=== PATIENT | female | born 1970 | race African-American/Black ===

== ENCOUNTER 2016-09-27 19:34 | Emergency (ER) | payer OTHER ==
[~2016-09-27] VITALS: Ht 172.7 cm; Wt 105.0 kg
[~2016-09-27 19:34] MED LIST: ATEN-100 PO; B/P MED; IBUP800T23 PO; NAPR500 PO; ONDA1TAB16 PO; TRAM50 PO; ZOFR4TAB3 SL
[2016-09-27 19:43] VITALS: BP 148/88; PULSE 77; RESP 18; TEMP 98.6; O2SAT 99
[2016-09-27 19:56] VITALS: BP 148/88; PULSE 77; RESP 18; TEMP 98.6; O2SAT 99
[2016-09-27] MEDS ORDERED: LORazepam 2 MG TAB PO ONE (20:45)
[2016-09-27] MEDS ORDERED: ACETAMINOPHEN/HYDROcodone 325 MG/10 MG TAB PO ONE (20:45)
[2016-09-27 21:00] VITALS: BP 160/78; PULSE 73; RESP 16; O2SAT 97
[2016-09-27] MEDS ORDERED: ATEN25TA PO (21:37)
[2016-09-27] MEDS ORDERED: ALBU2TAB4 PO (21:37)
--- NOTE | 2016-09-27 21:56 | PD ---
HPI . Cramping of both legs Chief Complaint: Musculoskeletal Complaint Time Seen by Provider: 20:41 Travel History International Travel<30 days: No Contact w/Intl Traveler<30days: No Traveled to known affect area: No History of Present Illness HPI Patient presents with a 2 day history of bilateral lower extremity cramping. She denies known injury. Symptoms are exacerbated by driving a car. Symptoms were unrelieved by Aleve. The nurse has obtained a history of previous hypokalemia. Patient reports that she has been off of potassium for quite some time now. The nurse also obtained a history of a recent in the family. There is a question of alcohol use. [id number]: Both legs QUALITY: Cramping DURATION: 2 days TIMING: Continuous MODIFYING FACTORS: Exacerbated by driving. Unrelieved by Aleve ASSOCIATED SYMPTOMS: She denies chest pain or shortness of breath PFSH Past Medical History Cardiovascular Problems: Yes (HTN) Diminished Hearing: No Hypertension: Yes Neurologic: Yes (GUILLEN PALSY) Immunizations Current: Yes Migraines: Yes Tetanus Vaccination: < 5 Years Influenza Vaccination: No ?: Not LMP: 09/10/2016 : 2 Para: 2 Tubal Ligation: Yes (Reversal 2014) Past Surgical History Section: Yes Gynecologic Surgery: Yes ( 1991) Social History Alcohol Use: No Tobacco Use: Yes Substance Use: No Allergies-Medications (Allergen,Severity, Reaction): Coded Allergies: No Known Allergies (Verified , 09/27/16) Reported Meds & Prescriptions Reported Meds & Active Scripts Active Reported Albuterol (Albuterol Sulfate) 2 Mg Tab 2 Mg PO TID Atenolol 25 Mg Tab 50 Mg PO DAILY Review of Systems Except as stated in HPI: all other systems reviewed are Neg General / Constitutional: No: Fever, Chills Cardiovascular: No: Chest Pain or Discomfort Respiratory: No: Shortness of Breath Gastrointestinal: No: Nausea, Vomiting Musculoskeletal: Positive: Myalgias Physical Exam Narrative GENERAL: Awake and alert and in no acute distress. She ambulates to the room without difficulty. SKIN: Warm and dry. HEAD: Atraumatic. Normocephalic. EYES: Pupils equal and round. ENT: No nasal bleeding or discharge. Mucous membranes pink and moist. NECK: Trachea midline. CARDIOVASCULAR: Regular rate and rhythm. RESPIRATORY: No accessory muscle use. GASTROINTESTINAL: Abdomen soft, non-tender, nondistended. MUSCULOSKELETAL: No obvious deformities. No edema. Her calves and thighs are nontender to palpation. There is no coloration. The skin is normal temperature. Full and equal distal pulses. NEUROLOGICAL: Awake and alert. No obvious cranial nerve deficits. Motor grossly within normal limits. Normal speech. PSYCHIATRIC: Appropriate mood and affect; insight and judgment normal. Data Data Last Documented VS Vital Signs Date Time Temp Pulse Resp B/P Pulse Ox O2 Delivery O2 Flow Rate FiO2 09/27/16 21:00 73 16 160/78 97 Room Air 09/27/16 19:56 98.6 Orders Us Leg Venous Doppler Bilat (09/27/16 20:41) Basic Metabolic Panel (Bmp) (09/27/16 20:41) Magnesium (Mg) (09/27/16 20:41) Acetamin-Hydrocod 325-10 Mg ([place] 10-32 (09/27/16 20:45) Lorazepam (Ativan) (09/27/16 20:45) Labs Laboratory Tests Test 09/27/16 22:00 Sodium Level 140 MEQ/L Potassium Level 3.8 MEQ/L Chloride Level 105 MEQ/L Carbon Dioxide Level 25.8 MEQ/L Anion Gap 9 MEQ/L Blood Urea Nitrogen 14 MG/DL Creatinine 0.75 MG/DL Estimat Glomerular Filtration 102 ML/MIN Rate Random Glucose 104 MG/DL Calcium Level 8.6 MG/DL Magnesium Level 1.9 MG/DL MDM Medical Decision Making Medical Screen Exam Complete: Yes Emergency Medical Condition: Yes Differential Diagnosis Differential diagnosis of leg pain includes but is not limited to lumbar radiculopathy, arthritis, myalgias, DVT. Narrative Course Patient presents complaining with bilateral lower extremity cramping. We will check her electrolytes and an ultrasound rule out a DVT. Last Impressions Lower Extremity Ultrasound 09/27/162040 Signed Impressions: Service Date/Time: Tuesday, September 27, 2016 21:26 - CONCLUSION: 1. No DVT in either leg. David Caraballo MD BMP Diagram 09/27/16 22:00 Magnesium is 1.9. Diagnosis Primary Impression: Leg cramps Qualified Code: R25.2 - Cramp of both lower extremities Patient Instructions: General Instructions, Leg Cramps (ED) Med/Other Pt SpecificInfo: Prescription(s) given Scripts Cyclobenzaprine (Flexeril)10 Mg Tab10 Mg PO TID #30 TAB Ref 0 Prov:Kenna Lopez MD 09/27/16 Tramadol (Ultram)50 Mg Tab50 Mg PO Q4H PRN (PAIN) #12 TAB Ref 0 Prov:Kenna Lopez MD 09/27/16 Disposition: 01 DISCHARGE HOME Condition: Stable Kenna Lopez MD Sep 27, 2016 21:56
--- NOTE | 2016-09-27 21:59 | RADHPO ---
EXAM DATE/TIME: 09/27/2016 21:26 [facility] COMPARISON: No previous studies available for comparison. INDICATIONS : Bilateral leg cramps. MEDICAL HISTORY : Hypertension. . Migraines. [place] palsy. SURGICAL HISTORY : Tubal ligation. section. ENCOUNTER: Initial ACUITY: 3 days PAIN SCORE: 5/10 LOCATION: Bilateral legs. TECHNIQUE: Venous ultrasound of the left and right leg was performed from the inguinal ligament to the proximal calf. Real-time, color Doppler and spectral tracing, compression and augmentation techniques were us ed. FINDINGS: RIGHT LEG: There is normal compressibility of the deep venous system from the inguinal region to the proximal ca lf. No echogenic clot is seen in the lumen of the common femoral, femoral, popliteal, and posterior tibial veins. There is a normal response of the venous system to proximal and distal augmentation an d respiration. LEFT LEG: There is normal compressibility of the deep venous system from the inguinal region to the proximal ca lf. No echogenic clot is seen in the lumen of the common femoral, femoral, popliteal, and posterior tibial veins. There is a normal response of the venous system to proximal and distal augmentation an d respiration. CONCLUSION: 1. No DVT in either leg. David Caraballo MD on September 27, 2016 at 21:56 Board Certified Radiologist. This report was verified electronically.
[2016-09-27 22:00] VITALS: BP 171/86; PULSE 72; RESP 18; O2SAT 99
[2016-09-27 22:20] LABS: POTASSIUM 3.8 MEQ/L (3.5-5.1)
[2016-09-27 22:22] LABS: BICARBONATE 25.8 MEQ/L (21.0-32.0); MAGNESIUM 1.9 MG/DL (1.5-2.5)
[2016-09-27] MEDS ORDERED: ULTR50TA5 PO (22:45)
[2016-09-27] MEDS ORDERED: CYCL1TAB29 PO (22:45)
[2016-09-27] MEDS ORDERED: ONDANSETRON HCL 4 MG/2 ML VIAL IV PUSH ONE (23:30)
[2016-09-28 00:01] VITALS: BP 195/99; PULSE 77; RESP 18; O2SAT 99
[2016-09-28 00:08] VITALS: BP 187/85
== END 2016-09-28 00:26 | disposition home or self-care (01) ==
LOC: PHED 19:34
DX: R25.2 Cramp and spasm (principal); I10 Essential (primary) hypertension; Z72.0 Tobacco use; Z86.79 Personal history of other diseases of the circulatory system; Z86.69 Personal history of other diseases of the nervous system and sense organs
CPT/HCPCS: 80048; 83735; 93970; 96374; 99284; J2405

== ENCOUNTER 2016-10-05 06:29 | Emergency (ER) | payer OTHER ==
[~2016-10-05] VITALS: Ht 172.7 cm; Wt 100.0 kg
[~2016-10-05 06:29] MED LIST changes: +ALBU2TAB4 PO; -ATEN-100 PO; +ATEN25TA PO; -B/P MED; +CYCL1TAB29 PO; -IBUP800T23 PO; -NAPR500 PO; -ONDA1TAB16 PO; -TRAM50 PO; +ULTR50TA5 PO; -ZOFR4TAB3 SL
[2016-10-05 06:30] VITALS: BP 168/88; PULSE 122; RESP 18; TEMP 98.3; O2SAT 98
[2016-10-05] MEDS ORDERED: MOBI7.5T PO (07:14)
--- NOTE | 2016-10-05 09:43 | PD ---
HPI Chief Complaint: Pain: Acute or Chronic Time Seen by Provider: 07:36 Travel History International Travel<30 days: No Contact w/Intl Traveler<30days: No Traveled to known affect area: No History of Present Illness HPI The patient was seen and examined in the presence of the nurse. This patient complains of right knee pain. Duration one week. No injury. Symptoms severity is moderate. She's been to her family physician as well as [facility] emergency room twice for this. She had a negative ultrasound for DVT but did reveal a Lucia cyst. She feels the pain and fullness behind the knee. PFSH Past Medical History Cardiovascular Problems: Yes (HTN) Diminished Hearing: No Hypertension: Yes Neurologic: Yes (GUILLEN PALSY) Immunizations Current: Yes Migraines: Yes Tetanus Vaccination: Unknown Influenza Vaccination: No ?: Not LMP: 09/15/2016 : 2 Para: 2 Tubal Ligation: Yes (Reversal 2014) Past Surgical History Section: Yes (1992) Gynecologic Surgery: Yes ( 1992) Social History Alcohol Use: No (OCC ) Tobacco Use: Yes (/2 PPD ) Substance Use: No (HX : MARIJUANA USE ) Allergies-Medications (Allergen,Severity, Reaction): Coded Allergies: No Known Allergies (Verified , 10/05/16) Reported Meds & Prescriptions Reported Meds & Active Scripts Active Flexeril (Cyclobenzaprine HCl) 10 Mg Tab 10 Mg PO TID Ultram (Tramadol HCl) 50 Mg Tab 50 Mg PO Q4H PRN Reported Mobic (Meloxicam) 7.5 Mg Tab 7.5 Mg PO DAILY Albuterol (Albuterol Sulfate) 2 Mg Tab 2 Mg PO TID Atenolol 25 Mg Tab 50 Mg PO DAILY Review of Systems General / Constitutional: No: Fever HENT: No: Headaches Cardiovascular: No: Irregular Rhythm Respiratory: No: Cough Physical Exam Narrative SKIN: Inspection shows no rash or ulcers. Palpation shows no induration or nodules. Psych: Normal mood and affect. Normal insight and judgment. Right leg: No effusion or erythema or warmth at the knee. No bony tenderness. Joint is stable. Data Data Last Documented VS Vital Signs Date Time Temp Pulse Resp B/P Pulse Ox O2 Delivery O2 Flow Rate FiO2 10/05/16 06:30 98.3 122 18 168/88 98 Room Air Orders Crutches (10/05/16 07:59) MDM Medical Decision Making Medical Screen Exam Complete: Yes Emergency Medical Condition: Yes Medical Record Reviewed: Yes Differential Diagnosis Lucia cyst, DVT, soft tissue injury Narrative Course I have reviewed the patient's electronic medical record. I reviewed her ultrasound results which ruled out DVT but she'll Lucia cyst behind the right knee. I gave her crutches Recommend nonweightbearing for a few days. She should ice and elevate and follow-up with orthopedist She has anti-inflammatories as well as Flexeril and tramadol at home for pain relief Diagnosis Primary Impression: Lucia's cyst of knee Qualified Code: M71.21 - Lucia's cyst of knee, right Additional Instructions: Follow-up with orthopedist Use crutches Med/Other Pt SpecificInfo: Other Disposition: 01 DISCHARGE HOME Condition: Stable Gene Reddy MD Oct 05, 2016 09:43
[2016-10-05 09:55] VITALS: BP 130/60
== END 2016-10-05 10:00 | disposition home or self-care (01) ==
LOC: NEPC 06:29
DX: M71.21 Synovial cyst of popliteal space [Baker], right knee (principal); I10 Essential (primary) hypertension; F17.210 Nicotine dependence, cigarettes, uncomplicated
CPT/HCPCS: 99283; E0113

== ENCOUNTER 2017-04-24 15:12 | Emergency (ER) | payer OTHER ==
[~2017-04-24] VITALS: Ht 172.7 cm; Wt 102.8 kg
[~2017-04-24 15:12] MED LIST changes: +MOBI7.5T PO
[2017-04-24 15:18] VITALS: BP 207/95; PULSE 82; RESP 18; TEMP 99.1; O2SAT 100
[2017-04-24] MEDS ORDERED: HYDR50TA94 PO (16:23)
[2017-04-24] MEDS ORDERED: NAPHSOL LEFT EYE (16:23)
--- NOTE | 2017-04-24 16:24 | PD ---
HPI . Left eye swelling Chief Complaint: Eye Problems/Injury Time Seen by Provider: 16:16 Travel History International Travel<30 days: No Contact w/Intl Traveler<30days: No Traveled to known affect area: No History of Present Illness HPI This patient presents with an onset of a swollen left eye. She awakened this morning. She states that she has treated it with a warm compress with marked improvement. Still have some swelling and some redness. She also states that the eyes itching and watering. She has not taken any medication for it. She does not know the etiology of the apparent allergy. She states that her symptoms this morning were severe. Mild now. PFSH Past Medical History Cardiovascular Problems: Yes (htn) Chemotherapy: Yes Diminished Hearing: No Hypertension: Yes Neurologic: Yes (GUILLEN PALSY) Respiratory: Yes Immunizations Current: Yes Migraines: Yes Tetanus Vaccination: < 5 Years Influenza Vaccination: No ?: Not LMP: 04-16-17 : 2 Para: 2 Tubal Ligation: Yes (Reversal 2014) Past Surgical History Section: Yes (1992) Gynecologic Surgery: Yes ( 1992) Other Surgery: Yes (reversal of tubal 2015) Social History Alcohol Use: No (OCC ) Tobacco Use: Yes (/2 PPD ) Substance Use: No (HX : MARIJUANA USE ) Allergies-Medications (Allergen,Severity, Reaction): Coded Allergies: No Known Allergies (Verified , 04/24/17) Reported Meds & Prescriptions Reported Meds & Active Scripts Active Reported Albuterol (Albuterol Sulfate) 2 Mg Tab 2 Mg PO TID Review of Systems Except as stated in HPI: all other systems reviewed are Neg Eyes: Positive: Drainage, Redness, Tearing, Other (itching and swelling), No: Blurred Vision Physical Exam Narrative GENERAL: Pleasant woman who is in no acute distress. SKIN: Warm and dry with no rash or lesions. HEAD: Normocephalic/atraumatic. EYES: Pupils are equal. Extraocular movements are intact. The conjunctiva of the left eye is edematous and injected. NECK: Supple. Full range of motion. CARDIOVASCULAR: Regular rate and rhythm. RESPIRATORY: Nonlabored respirations. MUSCULOSKELETAL: Atraumatic. NEUROLOGICAL: Nonfocal. PSYCHIATRIC: Appropriate mood and affect. Data Data Last Documented VS Vital Signs Date Time Temp Pulse Resp B/P (MAP) Pulse Ox O2 Delivery O2 Flow Rate FiO2 04/24/17 15:18 99.1 82 18 207/95 (132) 100 MDM Medical Decision Making Medical Screen Exam Complete: Yes Emergency Medical Condition: Yes Differential Diagnosis Differential diagnosis of eye pain includes but is not limited to conjunctivitis , chemical irritation, corneal abrasion, acute angle-closure glaucoma. Narrative Course This patient presents with swelling, itching and watering of her left eye. Her exam is compatible with allergic conjunctivitis. She will be discharged to home on Atarax and Naphcon A. Diagnosis Primary Impression: Allergic conjunctivitis Qualified Codes: H10.12 - Acute atopic conjunctivitis, left eye Patient Instructions: Conjunctivitis (DC), General Instructions Med/Other Pt SpecificInfo: Prescription(s) given Scripts Naphazoline-Pheniramine Opth Drops (Naphcon-A Opth Drops) 0.025-0.3 % Soln 1 DROP LEFT EYE QID for Decrease eye itching/redness, #1 BOTTLE 0 Refills Prov: Kenna Lopez MD 04/24/17 Hydroxyzine HCl (Hydroxyzine HCl) 50 Mg Tab 50 MG PO QID Y for itching, #30 TAB 0 Refills Prov: Kenna Lopez MD 04/24/17 Disposition: 01 DISCHARGE HOME Condition: Stable Kenna Lopez MD Apr 24, 2017 16:23
== END 2017-04-24 16:34 | disposition home or self-care (01) ==
LOC: PHEFT 15:12
DX: H10.12 Acute atopic conjunctivitis, left eye (principal); F17.210 Nicotine dependence, cigarettes, uncomplicated
CPT/HCPCS: 99283

== ENCOUNTER 2017-12-31 03:00 | Emergency (ER) | payer OTHER ==
[~2017-12-31] VITALS: Ht 172.7 cm; Wt 100.0 kg
[~2017-12-31 03:00] MED LIST changes: -ATEN25TA PO; -CYCL1TAB29 PO; +HYDR50TA94 PO; -MOBI7.5T PO; +NAPHSOL LEFT EYE; -ULTR50TA5 PO
[2017-12-31 03:02] VITALS: BP 140/79; PULSE 107; RESP 18; TEMP 97.7; O2SAT 100
[2017-12-31] MEDS ORDERED: AMLO10TA2 PO (03:05)
--- NOTE | 2017-12-31 03:23 | PD ---
HPI Chief Complaint: Back/ Neck Pain or Injury Time Seen by Provider: 03:21 Travel History International Travel<30 days: No Contact w/Intl Traveler<30days: No Traveled to known affect area: No History of Present Illness HPI Patient comes in complaining of lower back pain, worse with movement, nonradiating, rates it 8 out of 10. It all started while she was playing with her granddaughter and she ended up feeling like she pulled her back while playing. Patient denies any urinary or fecal incontinence. Patient denies any numbness to her groin area or down to her legs. Patient denies any alleviating or aggravating factors. Patient denies any associated factors such as fever, rash, nausea, vomiting, diarrhea, hematuria/dysuria/frequency/urgency. No nondrug allergies Past medical history significant for Guillen's palsy, migraine, hypertension, C- section 1982, reversal of tubal ligation back in 2014, , occasional alcohol use, marijuana use half a pack per day of tobacco use PFSH Past Medical History Cardiovascular Problems: Yes (htn) Chemotherapy: Yes Diminished Hearing: No Hypertension: Yes Neurologic: Yes (GUILLEN PALSY) Respiratory: Yes Immunizations Current: Yes Migraines: Yes Tetanus Vaccination: Unknown Influenza Vaccination: No ?: Not : 2 Para: 2 Tubal Ligation: Yes (Reversal 2014) Past Surgical History Section: Yes (1992) Gynecologic Surgery: Yes ( 1992) Other Surgery: Yes (reversal of tubal 2015) Social History Alcohol Use: No (OCC ) Tobacco Use: Yes (1/2 PPD ) Substance Use: No (HX : MARIJUANA USE ) Allergies-Medications (Allergen,Severity, Reaction): Coded Allergies: No Known Allergies (Verified Adverse Reaction, Unknown, 12/31/17) Reported Meds & Prescriptions Reported Meds & Active Scripts Active Reported Amlodipine (Amlodipine Besylate) 10 Mg Tab 10 Mg PO DAILY Review of Systems General / Constitutional: No: Fever Eyes: No: Visual changes HENT: No: Headaches Cardiovascular: No: Chest Pain or Discomfort Respiratory: No: Shortness of Breath Gastrointestinal: No: Abdominal Pain Genitourinary: No: Dysuria Musculoskeletal: Positive: Pain Skin: No Rash Neurologic: No: Weakness Psychiatric: No: Depression Endocrine: No: Polydipsia Hematologic/Lymphatic: No: Easy Bruising Physical Exam Narrative GENERAL: SKIN: Warm and dry. HEAD: Atraumatic. Normocephalic. EYES: Pupils equal and round. No scleral icterus. No injection or drainage. ENT: No nasal bleeding or discharge. Mucous membranes pink and moist. NECK: Trachea midline. No JVD. CARDIOVASCULAR: Regular rate and rhythm. RESPIRATORY: No accessory muscle use. Clear to auscultation. Breath sounds equal bilaterally. GASTROINTESTINAL: Abdomen soft, non-tender, nondistended. MUSCULOSKELETAL: Extremities without clubbing, cyanosis, or edema. No obvious deformities. Patient has notable spasm of her lower ileal lumbarIs muscle NEUROLOGICAL: Awake and alert. No obvious cranial nerve deficits. Motor grossly within normal limits. Five out of 5 muscle strength in the arms and legs. Normal speech. PSYCHIATRIC: Appropriate mood and affect; insight and judgment normal. Data Data Last Documented VS Vital Signs Date Time Temp Pulse Resp B/P (MAP) Pulse Ox O2 Delivery O2 Flow Rate FiO2 12/31/17 03:02 97.7 107 18 140/79 (99) 100 MDM Medical Decision Making Medical Screen Exam Complete: Yes Emergency Medical Condition: Yes Medical Record Reviewed: Yes Differential Diagnosis Spasm versus sciatica versus neuropathy versus shingles/zoster Narrative Course Clinically the patient did not have any skin rashes, was negative for straight leg raise test, and did not have any evidence of tingling or numbness to any part of her lower extremities nor her saddle area. The patient did have some visible spasms of the lower iliolumbar is muscle and so the patient was given Norflex and Toradol for relief. Patient will be discharged on baclofen and Ultram and advised to rest and avoid driving or utilizing any heavy machinery while taking baclofen and Ultram as they can make her drowsy. Diagnosis Primary Impression: Spasm of muscle of lower back Patient Instructions: General Instructions, Muscle Spasm (ED) Additional Instructions: Your advised not to drive a vehicle or use any sharp or heavy machinery while taking tramadol or baclofen. As these medications may make you drowsy Scripts Tramadol (Ultram) 50 Mg Tab 50 MG PO Q8H Y for PAIN, #12 TAB 0 Refills Prov: Leandro Price MD 12/31/17 Baclofen (Baclofen) 20 Mg Tab 20 MG PO TID for Muscle Spasm for 5 Days, #15 TAB 0 Refills Prov: Leandro Price MD 12/31/17 Disposition: 01 DISCHARGE HOME Condition: Stable Leandro Price MD Dec 31, 2017 03:23
[2017-12-31] MEDS ORDERED: BACL20TA PO (03:59)
[2017-12-31] MEDS ORDERED: TRAM50 PO (03:59)
[2017-12-31] MEDS ORDERED: KETOROLAC TROMETHAMINE 60 MG/2 ML (IM) VIAL IM ONE (04:00)
[2017-12-31] MEDS ORDERED: ORPHENADRINE INJ 60 MG/2 ML AMP IM ONE (04:00)
== END 2017-12-31 05:11 | disposition home or self-care (01) ==
LOC: NEPC 03:00
DX: M62.830 Muscle spasm of back (principal); F17.200 Nicotine dependence, unspecified, uncomplicated; F12.90 Cannabis use, unspecified, uncomplicated; I10 Essential (primary) hypertension
CPT/HCPCS: 96372; 99283; J1885; J2360